=== PATIENT | female | born 1990 | race Caucasian/White ===

== ENCOUNTER 2018-04-09 15:46 | Emergency (ER) | payer OTHER, SELFPAY ==
[2018-04-09 15:46] VITALS: BP 128/78; PULSE 95; RESP 16; TEMP 36.6; O2SAT 100; BMI 25.8
--- NOTE | 2018-04-09 16:39 | ED.DCSUM_ITS ---
- ER Visit Summary Date of Service: 04/09/18 Chief Complaint: Abdominal pain History of Present Illness: The patient is a 27 F presenting with nausea, dysuria, abdominal pain. Patient went to urgent care because she believes she has a urinary tract infection. When the urgent care practitioner examined her she had left-sided abdominal pain. She was not aware of this abdominal pain until she was examined. She has had no vomiting. She denies fever. She has history of previous kidney infection. Denies possibility of . Physical Examination: Vitals are stable. Patient is afebrile. Alert no acute distress. HEENT exam is unremarkable. Neck is supple. Lungs are clear and equal bilaterally. Heart is regular rate and rhythm. Abdomen is soft left upper quadrant tenderness, no rebound or guarding Back: no CVA tenderness Extremities are unremarkable. Skin is warm and dry. No focal neurologic deficit. Remainder of exam is unremarkable. Emergency Department Course and Treatment: CBC, chemistries unremarkable. Liver lipase are normal. Urinalysis shows 50-100 white blood cells. D-dimer negative. HCG negative. She was given IV fluids, Phenergan with improvement. She is given a prescription for Bactrim. She is advised to follow-up with her primary care physician. She is advised to return to ED for worsening complaints. Disposition: Discharge home Impression: UTI, abdominal pain This note was generated with [employer] dictation software. It may contain incorrect words, spelling, and punctuation that were not noted in review of the chart prior to signing ED Disposition - Plan for ED Patient: Chief Complaint: Abd Pain Instructions: ED UTI Cystitis Female Prescriptions: Ondansetron [Zofran Odt] 4 mg PO Q8H PRN PRN #10 tablet PRN Reason: Nausea Smz/Tmp Ds [Bactrim Ds] 1 tablet PO BID #14 tablet Referrals: Enrique Putnam MD [Primary Care Provider] -
[2018-04-09 16:49] LABS: Color, Urine Yellow (Yellow); Glucose, Dipstick Normal (Normal); Leukocyte Esterase-Dipstick 25 /ul (Negative); Nitrite-Dipstick Negative (Negative); Occult Blood-Urine 25 /ul (Negative); Protein-Dipstick 30 mg/dl (Negative); Specific Gravity, Urine 1.025 (1.002-1.030); Urine Bilirubin Dipstick Negative (Negative); Urine Clarity Clear (Clear); Urine Urobilinogen Normal (Normal)
[2018-04-09] MEDS: 0.9% Normal Saline 1,000 ML 1000 ML IV (16:49)
[2018-04-09] MEDS: proMETHazine 25 MG/ML Syringe 6.25 MG IV (16:49)
[2018-04-09 16:52] LABS: Internal QC Validated? YES +Cl - CLEAR BKGD; Ketone-Dipstick 150 mg/dl (Negative); Pregnancy, Urine Negative Negative
[2018-04-09 16:56] LABS: Bacteria 1+ /hpf (None Seen); Mucous, Urine 1+ /hpf (<or=2+); Red Blood Cells-Urine 0-5 SEEN /hpf (0-5); Squamous Epithelial Cells - UA 0-5 SEEN /hpf (5-10); White Blood Cells 50-100 SEEN /hpf (0-5)
[2018-04-09 17:06] LABS: Absolute Lymphocyte Count 1.33 X10^3/ul (0.83-4.51); Absolute Neutrophil Count 5.4 X10^3/uL (2.0-7.7); Basophil# 0.01 X10^3/uL; Basophil% 0.1 % (0-1); Eosinophil# 0.05 X10^3/uL; Eosinophils% 0.7 % (0-5); Hematocrit 34.3 % (37-47); Hemoglobin 11.5 g/dl (12.0-15.0); Lymphocyte # 1.33 X10^3/ul (4.0); Lymphocyte % 18.4 % (19-41); Mean Corp Hgb Conc 33.5 g/gl (32-36); Mean Corpuscular Hgb 30.2 pg (27.0-32.0); Mean Platelet Vol. 10.3 fl (6.2-12.0); Monocyte# 0.46 X10^3/uL; Monocyte% 6.4 % (0-10); Neutrophil # 5.37 X10^3/uL (2.7-7.7); Neutrophil % 74.3 % (47-70); POSITIVE COUNT NO; POSITIVE DIFFERENTIAL NO; POSITIVE MORPHOLOGY NO; Platelet Count 239 K/mm3 (150-450); RBC Distribution Width CV 13.3 % (11.6-14.6); Red Blood Count 3.81 M/mm3 (4.2-5.4); White Blood Count 7.2 K/mm3 (4.4-11.0)
[2018-04-09 17:17] LABS: ALB/GLOB Ratio 1.1 RATIO (0.9-2.4); AST(SGOT) 10 U/L (15-37); Alanine Aminotransfer ALT/SGPT 11 U/L (13-56); Albumin, Serum 3.6 g/dL (3.2-5.0); Alkaline Phosphatase 62 U/L (45-117); Anion Gap 7 (5-15); BUN 8 mg/dL (7-18); BUN/Creat Ratio 12.1 RATIO (10-20); Calcium,Total 8.4 mg/dL (8.5-10.1); Chloride 107 mmol/L (98-107); Creatinine, Serum 0.66 mg/dL (0.55-1.02); EST Glomerular Filtration Rate 115 mL/min (>60); Est Glom Filt Rate - Afr Amer 139 mL/min (>60); Estimated Creatinine Clearance 107.79 ml/min; Globulin 3.4 g/dL (2.2-4.2); Glucose 79 mg/dL (74-106); Lipase 86 U/L (73-393); Potassium 3.7 mmol/L (3.5-5.1); Sodium Level 141 mmol/L (136-145)
[2018-04-09 17:31] LABS: D-Dimer Quantitative (DVT/PE) < 0.27 FEU/ug/m (0.27-0.49)
--- NOTE | 2018-04-09 17:58 | ED.DEP ---
ED Disposition - Plan for ED Patient: Chief Complaint: Abd Pain Instructions: ED UTI Cystitis Female Prescriptions: Ondansetron [Zofran Odt] 4 mg PO Q8H PRN PRN #10 tablet PRN Reason: Nausea Smz/Tmp Ds [Bactrim Ds] 1 tablet PO BID #14 tablet Referrals: Enrique Putnam MD [Primary Care Provider] -
[2018-04-09] MEDS: Smz/Tmp Ds Tablet 1 TABLET PO (18:14)
[2018-04-09 18:17] VITALS: BP 103/53; PULSE 58; RESP 16; O2SAT 98
== END 2018-04-09 18:18 | disposition home or self-care (01) ==
LOC: ED 16:56
PROVIDERS: Emergency Provider Emergency Medicine; Family Provider Family Medicine; PCP Family Medicine
DX: N39.0 Urinary tract infection, site not specified (principal); R10.9 Unspecified abdominal pain; Z87.440 Personal history of urinary (tract) infections
CPT/HCPCS: 80053; 81001; 81025; 83690; 85025; 85379; 96361; 96374; 99284; J7030; A4216

== ENCOUNTER → 2018-05-29 09:25 | Outpatient (CLI) | payer OTHER, SELFPAY ==
[2018-05-29 14:44] LABS: Chlamydia Trachomatis by PCR Negative (Negative); Neisserai gonorrhoeae by PCR Negative (Negative); Probe Check PASS; Sample Adequacy Control PASS; Specimen Processing Control PASS
== END ==
PROVIDERS: Visit Provider Obstetrics & Gynecology
DX: Z11.3 Encounter for screening for infections with a predominantly sexual mode of transmission (principal)
CPT/HCPCS: 87491; 87591

== ENCOUNTER 2024-03-28 09:11 | Inpatient (IN) | payer OTHER, SELFPAY ==
--- NOTE | 2024-03-22 14:49 | HP.PCM_ITS ---
History and Physical Date of Admission: 03/28/24 HPI: The patient is a 33 year old female presenting for pre-operative visit. She is scheduled for , for 39 weeks and history of previous on 03/28/24. Procedure discussed along with risks, benefits and complications. Other alternatives discussed for management. Consent form signed? Yes. PAST MEDICAL HISTORY PAST MEDICAL HISTORY No date: ADHD (attention deficit hyperactivity disorder) No date: Anemia No date: Depression Comment: Depression /anxiety No date: Diabetes, gestational No date: depression PAST SURGICAL HISTORY PAST SURGICAL HISTORY 08/12/2022: SECTION HX Comment: Primary c/s No date: PAST SURGICAL HISTORY OF Comment: extraction of wisdom teeth 2013 CURRENT MEDICATIONS Current Outpatient Medications Medication Sig Dispense Refill ? blood sugar diagnostic (BLOOD GLUCOSE TEST) test strip Use with blood glucose test four times a day. Insulin Dep? No 100 Strip 3 ? VIT 5-ZMUP-ZUXME-DHA ORAL Take by mouth once daily. Gummy No current facility-administered medications for this visit. ALLERGIES: Amoxicillin and Penicillins PERSONAL HISTORY: SOCIAL HISTORY Social History Tobacco Use ? Smoking status: Former Current packs/day: 0.00 Types: Cigarettes Start date: 2010 Quit date: 2014 Years since quittin.6 ? Smokeless tobacco: Never Vaping Use ? Vaping status: Never Used Substance Use Topics ? Alcohol use: Not Currently ? Drug use: Never FAMILY HISTORY: FAMILY HISTORY FAMILY HISTORY Problem Relation Age of Onset ? No Known Problems Mother ? Heart disease Father ? Diabetes Father ? Crohn's Disease Brother ? other (anemia) Brother ? Colon Cancer Maternal Grandmother ? No Known Problems Maternal Grandfather ? Breast Cancer Paternal Grandmother ? Heart disease Paternal Grandfather REVIEW OF SYMPTOMS: GENERAL: denies fevers or chills ENDOCRINOLOGY: has not been on steroids Cardiology : denies palpitations or chest pain Respiratory: denies SOB or cough Hematology: denies history of prolonged bleeding or easy bruising or VTE Allergy: Denies history of personal or family history of allergy to anesthesia PHYSICAL EXAMINATION: VITALS: Blood pressure 118/72, pulse 112, weight 100.2 kg (221 lb), last menst rual period 06/29/2023. GENERAL: The patient is well nourished, well hydrated in no acute distress. , The patient is oriented to time, place, and person. NECK: Supple. No lynphadenopathy, normal thyroid, no thyromegaly. LUNGS: Clear to auscultation bilaterally. no wheezes, rhonchi or rales HEART: Regular rate and rhythm, Normal heart sounds, and No murmurs or gallops Abdomen: Soft, nontender, nondistended, gravid, large for gestational age Extremities 1+ edema, symmetrical IMPRESSION: Estimated Date of Delivery: 04/04/24 -0-0-1 with history of previous PLAN: The risks/benefits/alternatives and personal involved for the planned C- section were reviewed with the patient. Her questions were answered to her satisfaction and she desires to proceed. Consent was signed. I reviewed with her postop instructions and expectations. I have reviewed and updated past medical and surgical history, medications and allergies Assessment & Plan Assessment/Plan (1) 39 weeks gestation of : (2) High risk multigravida in third trimester: (3) Gestational diabetes mellitus in childbirth, diet controlled: (4) Maternal morbid obesity in third trimester, antepartum: (5) BMI 39.0-39.9,adult: (6) Polyhydramnios in third trimester:
[2024-03-28] VITALS (16 sets, daily range): BP systolic 82–124; BP diastolic 49–69; PULSE 55–86; RESP 14–18; TEMP 36.1–36.5; O2SAT 96–100; BMI 39.2
[2024-03-28] MEDS: Lactated Ringers 1,000 ML 999 ML IV (09:55)
[2024-03-28] MEDS: Acetaminophen 500 MG Tablet 1000 MG PO ×2 (09:56→17:56)
[2024-03-28 10:12] LABS: Absolute Lymphocyte Count 1.55 X10^3/uL (0.83-4.51); Absolute Neutrophil Count 7.1 X10^3/uL (2.0-7.7); Basophil# 0.02 X10^3/uL; Basophil% 0.2 % (0-1); Eosinophil# 0.11 X10^3/uL; Eosinophils% 1.1 % (0-5); Hematocrit 31.2 % (37-47); Hemoglobin 9.9 g/dL (12.0-15.0); Lymphocyte # 1.55 X10^3/ul (0.83-4.51); Mean Corp Hgb Conc 31.7 g/dL (32-36); Mean Corpuscular Hgb 25.4 pg (27.0-32.0); Mean Corpuscular Volume 80.2 fL (81-99); Mean Platelet Vol. 10.2 fl (6.2-12.0); Monocyte% 7.2 % (0-10); NRBC Flagged by Analyzer 0 % (0-5); Neutrophil # 7.13 X10^3/uL (2.7-7.7); Neutrophil % 73.6 % (47-70); Platelet Count 210 K/mm3 (150-450); RBC Distribution Width CV 16.3 % (11.6-14.6); RBC Distribution Width SD 47.5 fl (35.1-43.9); Red Blood Count 3.89 M/mm3 (4.2-5.4); White Blood Count 9.7 K/mm3 (4.4-11.0)
[2024-03-28] MEDS: Lactated Ringers 1,000 ML 150 ML IV (10:43)
[2024-03-28 10:56] LABS: Bedside Glucose 76 mg/dL (74-106)
[2024-03-28 10:58] LABS: Syphilis Antibodies Non-reactive
[2024-03-28] MEDS: Sodium Citrate/Citric Acid 30 ML UDC PO (11:48)
[2024-03-28] MEDS: Gentamicin IV 350 MG in Dextrose 5%-Water (50mL Bag) 50 ML 100 MG IVPB (11:58)
[2024-03-28] MEDS: Clindamycin 900 MG/50 ML BAG 75 MG IV (12:18)
--- NOTE | 2024-03-28 12:46 | OP.PCM_ITS ---
Assessment & Plan (1) Polyhydramnios in third trimester: (2) BMI 39.0-39.9,adult: (3) Maternal morbid obesity in third trimester, antepartum: (4) Gestational diabetes mellitus in childbirth, diet controlled: (5) High risk multigravida in third trimester: (6) 39 weeks gestation of : Maternal Data Information Final DUNG: 04/04/24 Gestational age: 39 0/7 Details Operative Information Date of Procedure: 03/28/24 Pre-Operative Diagnosis: previous c/s Post-Operative Diagnosis: same Indications for : Repeat Elective Classification: Scheduled Procedure Type: low transverse revenue audit clerk #1: Francheska Theodore Type of Anesthesia: Spinal Anesthesiologist: Carlos Ford Antibiotic Given: Clindamycin 600mg IV x1 and Gentamicin 1.5mg/kg IV x1 Drain: Gamez to straight drain Estimated Blood Loss: 800 Fluids Replaced: 1000 Procedure Start Time: 12:20 Procedure Stop Time: 12:43 Time of Delivery: 12:22 Findings Description of Procedure: The patient was taken to the operating room. She was prepped and draped in the dorsal supine position with a leftward tilt. A Pfannenstiel skin incision was made approximately 2 cm above the symphysis pubis and carried through to underlying layer fascia with the scalpel. The fascia was incised incised in the midline and extended laterally with the Mclaughlin scissors. The fascia was dissected off the rectus muscles with blunt and sharp dissection. The rectus muscles were in the midline and the peritoneum was entered bluntly. The peritoneal incision was stretched and the bladder blade was placed. The uterine incision was made in a low transverse fashion with the scalpel and extended superiorly and inferiorly with blunt dissection. The amniotic membranes were ruptured bluntly and clear amniotic fluid returned. The infant's head was brought to the incision in the flexed position and delivered without difficulty. The remainder of the was delivered with gentle traction and fundal pressure in the standard fashion. The mouth and nares were bulb suctioned. The cord was clamped and cut as the infant was stimulated. Cord clamping was delayed. The infant was handed off to the waiting nursing staff. The placenta was delivered with fundal massage and gentle traction in the standard fashion. The uterus was exteriorized and cleared of all clots and debris. The cervix was dilated with a ring forcep. The uterine incision was closed with #1 Vicryl in a running locked fashion. A second layer of the same suture was used in an imbricating fashion. The incision was examined and was found to be hemostatic. The uterus was placed back into the peritoneal cavity and hemostasis was again confirmed. The rectus muscles were examined and any bleeding was Bovie ca uterized. The parietal peritoneum and rectus muscles were closed en bloc with an 0 Vicryl running suture. The surgical teams outer gloves were then changed. The rectus fascia was examined and any bleeding was Bovie cauterized and the rectus fascia was closed with #1 PDS suture in a running standard fashion. The subcutaneous tissue was examining and any bleeding was Bovie cauterized. The subcutaneous tissue was reapproximated with 3-0 Vicryl suture. The skin was closed in a subcuticular fashion. I performed the entire procedure with assistance. All sponge, lap, and needle counts were correct. The patient was taken to her room for recovery in a stable condition. Presentation: Positive for Vertex Amniotic Membrane Rupture Type: Artificial Amniotic Fluid Description: Clear Placental Delivery Description: Expressed Placenta Disposition: [facility] Cord Vessel Description: 3 Vessels Cord Entanglement: Around neck x 1, loose Nuchal Cord Compression: Without compression Infant A Gender: Male (8lb) (1 minute): 8 (5 minute): 9 Delayed Cord Clamping: Yes Complications Complications: none Admit VTE Documentation VTE Present on Admission: No VTE Mechan Device Prophylaxis: SCD's VTE Pharm Prophylaxis Ordered: Yes
[2024-03-28] MEDS: Oxytocin 15 Units/NS 250ml 15 UNITS/250 ML IV.SOLN 83 UNITS IV (13:34)
[2024-03-28] MEDS: LACTATED RINGERS 500 ML 999 ML IV (13:34)
[2024-03-28] MEDS: Ketorolac 30 MG/ML Syringe IV ×2 (13:40→20:24)
[2024-03-28 15:13] LABS: Bedside Glucose 81 mg/dL (74-106)
[2024-03-28] MEDS: Lactated Ringers 1,000 ML 100 ML IV (16:12)
[2024-03-28] MEDS: 0.9% Saline Lock 10 ML Syringe IV (20:25)
[2024-03-29] MEDS: Acetaminophen 500 MG Tablet 1000 MG PO ×4 (00:23→17:46)
[2024-03-29] MEDS: Lactated Ringers 1,000 ML 100 ML IV (00:24)
[2024-03-29] MEDS: Enoxaparin 40 MG/0.4 ML Syringe SC (00:24)
[2024-03-29 00:30] VITALS: BP 116/66; PULSE 72; RESP 16; TEMP 36.3; O2SAT 97
[2024-03-29] MEDS: Ketorolac 30 MG/ML Syringe IV ×2 (02:10→06:55)
[2024-03-29 04:15] VITALS: BP 117/58; PULSE 71; RESP 16; TEMP 36.2; O2SAT 98
[2024-03-29 04:35] LABS: Hematocrit 27.8 % (37-47); Hemoglobin 8.6 g/dL (12.0-15.0); Mean Corp Hgb Conc 30.9 g/dL (32-36); Mean Corpuscular Hgb 24.9 pg (27.0-32.0); Mean Corpuscular Volume 80.3 fL (81-99); Mean Platelet Vol. 10.5 fl (6.2-12.0); Platelet Count 178 K/mm3 (150-450); RBC Distribution Width CV 16.6 % (11.6-14.6); RBC Distribution Width SD 47.9 fl (35.1-43.9); Red Blood Count 3.46 M/mm3 (4.2-5.4); White Blood Count 12.4 K/mm3 (4.4-11.0)
[2024-03-29 06:37] LABS: Bedside Glucose 81 mg/dL (74-106)
[2024-03-29 08:09] VITALS: BP 122/66; PULSE 68; RESP 15; TEMP 36.1
--- NOTE | 2024-03-29 08:43 | PCM.PN.CNM ---
Subjective Subjective Patient seen at bedside. Denies headache, vision changes, SOB or CP. Ambulating and voiding without difficulty. Passing flatus. infant. Objective Data Objective Data Vital Signs: Vital Signs Temp Pulse Resp BP Pulse Ox O2 Del Method 97.0 F L 68 15 122/66 H 98 Room Air 03/29/24 08:09 03/29/24 08:09 03/29/24 08:09 03/29/24 08:09 03/29/24 04:15 03/29/24 08:09 Oxygen Delivery Method Room Air Weight: 221 lb 12.56 oz Body Mass Index (BMI) 39.2 Intake & Output: Intake and Output for Last 24 Hours 03/27/24 03/28/24 03/29/24 23:59 23:59 23:59 Intake Total 2413.75 / 2413.75 820 / 820 Output Total 750 / 750 600 / 600 Balance 1663.75 / 1663.75 220 / 220 Lab / Micro Data Attestation: I reviewed the patient's lab results. 03/29/24 04:19 Labs: Laboratory Results - last 24 hr 03/28/24 09:50: WBC 9.7, RBC 3.89 L, Hgb 9.9 L, Hct 31.2 L, MCV 80.2 L, MCH 25.4 L, MCHC 31.7 L, RDW Std Deviation 47.5 H, RDW Coeff of Cadence 16.3 H, Plt Count 210, MPV 10.2, Immature Gran % (Auto) 1.900 H, Neut % (Auto) 73.6 H, Lymph % (Auto) 16.0 L, [place] % (Auto) 7.2, Eos % (Auto) 1.1, Baso % (Auto) 0.2, Absolute Neuts (auto) 7.1, Absolute Lymphs (auto) 1.55, Nucleated RBC % 0, Syphilis Total Ab Non-reactive, Blood Type O POSITIVE, Antibody Screen NEGATIVE 03/28/24 10:28: POC Glucose 76 03/28/24 14:54: POC Glucose 81 03/29/24 04:19: WBC 12.4 H, RBC 3.46 L, Hgb 8.6 L, Hct 27.8 L, MCV 80.3 L, MCH 24.9 L, MCHC 30.9 L, RDW Std Deviation 47.9 H, RDW Coeff of Cadence 16.6 H, Plt Count 178, MPV 10.5 03/29/24 06:14: POC Glucose 81 ROS Eyes Eyes: Denies blurry vision, spots in vision or tunnel vision ENT HEENT: Denies dizziness or headache(s) Cardiovascular Cardiovascular: Reports systems reviewed and no addt'l complaints, except as documented, dizziness and dyspnea Respiratory/Chest Respiratory/Chest: Reports systems reviewed and no addt'l complaints, except as documented Gastrointestinal Gastrointestinal: Reports systems reviewed and no addt'l complaints, except as documented Genitourinary Genitourinary: Reports systems reviewed and no addt'l complaints, except as documented Neurologic Neurologic: Denies abnormal speech, dizziness, headache(s), syncope or vertigo Psychiatric Psychiatric: Reports systems reviewed and no addt'l complaints, except as documented Physical Exam Const alert and no apparent distress General Appearance: cooperative Orientation / Consciousness: awake, oriented to person and oriented to place Exam Limitations: no limitations HEENT normocephalic Eyes General Eye: normal appearance of both eyes Neck full ROM Chest Chest: symmetrical chest wall rise Resp normal respiratory effort, normal air movement and clear to auscultation bilaterally Auscultation: clear to auscultation bilaterally Cardio regular rate and regular rhythm GI normal to inspection, nondistended, normoactive bowel sounds Uterus Palpation: uterus fundus firm Extremity full ROM and no calf tenderness Skin no rashes or lesions noted Neuro oriented x3 Psych mental status grossly normal and activity/motor behavior normal Assessment & Plan (1) Status post delivery: (2) Mother currently breast-feeding: PLAN: Plan POD 1 Repeat C/S HGB 8.6 down from 9.9 Start oral iron supplementation Increase ambulation today Pain control support
[2024-03-29 12:26] VITALS: BP 125/62; PULSE 79; RESP 16; TEMP 36.4
[2024-03-29] MEDS: FLU VACC 2024-25(6MOS UP)/PF 45 MCG/0.5 ML SYRINGE IM (12:29)
[2024-03-29] MEDS: Senna/Docusate Sodium 1 Tablet PO (12:30)
[2024-03-29] MEDS: Ferrous Sulfate 325 MG Tablet PO ×2 (12:32→17:47)
--- NOTE | 2024-03-29 13:44 | CASEMGMT ---
Social Work Assessment Labor and Delivery Unit Patient Address:[address] [place] [id number] Phone number:[phone] Date of Referral: 03/28/24 Time of Referral:? 1428 Referred By: Dr. Soto Date of Intervention: ??03/29/24 Time of Intervention:? 1100 Reason for Referral:? anxiety, depression Sw completed psychosocial assessment and acknowledges social work consult due to maternal mental health history. Sw presented to bedside and introduced self to mother of baby (ERMA- Iram). ERMA was alone in room for majority of assessment, until father of baby (ESTEFANIA Prajapati) presented later with older son. Sw completed psychosocial assessment and asked MOB to complete [place] Depression Scale. History obtained from: medical records, MOB Household composition: Currently residing in the family home is MOB, WILLIAM and older son (Skinny- 19 mos old). REMA reports that she and FOB recently moved back to [place] from [place] after discovering that they were in December. MOB states that they are in the process of purchasing the home that they are in from a family friend. Patient's parent/guardian status:? ?ERMA reports that she and WILLIAM met when they were in Kindergarten, and were in school together until they were in 8th grade when FOB transferred to a different school. After both parents graduated they met again and started dating. They have been together for 6 years. - MOB identifies any concerns of domestic violence or intimate partner violence. Medical History: ?ERMA is 33 year old female who is 2, para 1- now 2 following labor and delivery of . After her first son was born, ERMA had ParaGuard and did not know that she was until she was about 5 months . ERMA reports that the was a total surprise and is something that she is still processing. ERMA initiated care in [place] and then transferred OBGYN care to [facility] when she moved to [place] in February. ERMA presented to hospital on 03/28/24 for a scheduled repeat . Baby boy, named Nakita Garland, was born weighing 8lb. MOB states that breast feeding is going well and baby will be followed by Dr. Sims for pediatrics. Educational Status:? Both parents graduated from high school and obtained some college education- no degrees. MOB denies issues with reading, learning or comprehension. Financial Status: Both parents are gainfully employed. WILLIAM works from home as a draftsman for a [employer]. ERMA was employed by [employer] in [place], and is technically on a maternity leave. MOB states that when her maternity leave is over she will return to [employer] but is considering finding something else. Infant Supplies:?? MOB reports that they have all necessary baby items, including: car seat, safe sleep space, clothes, diapers and wipes. Childcare/Caregiver(s):? MOB states that she will be the primary caregiver to baby, along with WILLIAM as he works from home and can help out when she needs it. MOB states that when both parents have returned to work paternal grandma will watch kids , Tue and . Maternal grandma will watch baby on Mondays. And Fridays are up in the air at this time. Transportation:??Both parents have their drivers license and reliable means of transportation. No barriers at this time. Programs/Agencies Involved: ?MOB states that prior to moving to [place] she was looking into getting connected to a mental health provider, but stopped because she discovered she was and did not want to start medication during . Parents are over income for community agencies that provide financial assistance. ?? Children Services/Legal Issues:??? No prior involvement with Children Services, no issues or concerns warranting referral to be made at this time. Behavioral Health Issues: ??Mental Health History: ERMA reports that WILLIAM does have anxiety or depression but has never officially been diagnosed. MOB states that she has history of anxiety and depression and did experience depression after her first son was born. MOB states that while she was on maternity leave with her first son she felt isolated and alone during her 16 week maternity leave. MOB states that she felt anxious and did not want to put her baby down. MOB reports that it was not until July of this year when she realized that she had struggled with depression/ anxiety. ?ERMA completed [place] Depression scale and her score was an 18. MOB tearful and crying throughout completion of assessment. MOB allowed herself to be open and talk about her mental health history freely. MOB states that she was not ready to have another baby, and is grieving the time that she thought she would have with just one baby. MOB states that she feels as though she robbed her first son of time of being the only child. MOB states that she has never had thoughts of hurting her baby, however prior to delivering this baby she did have thoughts about what if I fell down the steps, what would happen. ERMA denies ever having thoughts of hurting herself in the past, and does not have plan or intent to do so now. MOB states that she is able to recognize that those kinds of thoughts are intrusive thoughts, and she would never act on them. ?? Substance Use History:?MOB denies substance use prior to and during . ? Family History:?MOB denies family history of substance use and significant mental health history. ? Drug Screens: No drug screens observed in chart review. ?? Family/Social Stressors:? ERMA reports that the unplanned was a significant stressor for her and FOB. MOB states that when she found out she was at 5 months, she and FOB decided that they would need to move back home to [place] so that they would have more help and support, especially since the baby will be born when their first son is less than 2 years old. MOB states that packing a house while 8-9 months , and then unpacking boxes that were not organized to begin with has been extremely stressful and overwhelming. MOB also states that the home they are living in they are in the process of buying, and the process had to start all over when they moved to [place] in February. MOB states that they are going in the right direction now with the purchase, but it took a while to get where they are. ERMA also identifies that her in-laws are a significant stressor to her at this time. ERMA reports that her in-laws have different parenting styles, and they are not on the same page. MOB states that this is stressful because they will be providing childcare for them three days out of the week when both parents have returned to work. ERMA's mental health is also a significant concern. Support Systems: ERMA identifies that WILLIAM, her mom and her two friends are her biggest support. MOB states that if she is at home during this maternity leave and needs someone to come and just be with her, her best friend is able to do that. Depression/Shaken Baby/Safe Sleeping:? Yahir educated ERMA on signs and symptoms of baby blues and mood and anxiety disorders to be on the lookout for during this period. Yahir explained to ERMA that she is already scoring an 18 on the [place] which is indicative of anxiety and depression. Sw encouraged MOB to consider getting connected to a mental health professional to address her underlying diagnoses and to have support during this period. MOB states that she is open to that recommendation and asked for information regarding resources. MOB states that she also plans on addressing this concern with her OBGYN to discuss a low dose medication to help her get through this time. Sw educated MOB on shaken baby prevention and ABCs of safe sleep. MOB expressed understanding. Sw encouraged MOB to have a conversation with FOB about what he can do to help support her during this time. MOB stated that she has broached this topic with him several times, but will do so again. ASSESSMENT:? MOB and baby admitted following labor and delivery. MOB observed to hold baby and look at home from time to time in loving manner. MOB seemed slightly disengaged from baby, and so this topic was discussed. MOB admits that she is still processing the fact that she has a baby and is living in [place] when this was not part of her plan. MOB reports that she does love baby and knows that she will adapt to these abrupt changes, but for now she is still processing. MOB states that she has supports in place and has all necessary baby items. MOB with mental health history and elevated [place] score. MOB open and receptive to engaging with ongoing mental health services and support. PLAN:? MOB and baby to be discharged when medically ready. MOB/ parents were provided with literature regarding: Help Me Grow, safe sleep, shaken baby prevention, [facility] resource list and education regarding mood and anxiety disorders to be aware of. ?No other services requested or indicated. Sterling Stauffer, PHOTOGRAPHER MODEL, [employer]
[2024-03-29] MEDS: Ibuprofen 600 MG Tablet PO ×2 (14:50→20:11)
[2024-03-29 16:07] VITALS: BP 117/68; PULSE 74; RESP 15; TEMP 36.5
[2024-03-29 20:13] VITALS: BP 121/71; PULSE 71; RESP 16; TEMP 36.2; O2SAT 98
[2024-03-29] MEDS: oxyCODONE 5 MG Tablet PO (22:14)
[2024-03-30] MEDS: Acetaminophen 500 MG Tablet 1000 MG PO ×3 (00:06→12:56)
[2024-03-30] MEDS: Enoxaparin 40 MG/0.4 ML Syringe SC (01:47)
[2024-03-30] MEDS: Ibuprofen 600 MG Tablet PO ×3 (01:47→12:57)
[2024-03-30 02:00] VITALS: BP 114/67; PULSE 63; RESP 16; TEMP 36.4; O2SAT 98
[2024-03-30] MEDS: Senna/Docusate Sodium 1 Tablet PO (08:08)
[2024-03-30 08:25] VITALS: BP 124/70; PULSE 74; RESP 18; TEMP 36.4; O2SAT 100
--- NOTE | 2024-03-30 10:14 | PCM.DC.SUM ---
Providers Date of Admission: 03/28/24 Primary Care Physician: No Primary Care Phys Reason For Visit: REPEAT C SECTION Diagnosis Discharge Diagnosis (1) Status post delivery: Status: Acute Code(s): Z98.891 - History of uterine scar from previous surgery (2) Post-operative pain: Status: Acute Code(s): G89.18 - Other acute postprocedural pain Plan POD 2 Repeat C/S Pain control support Desires discharge home today Reviewed PPD and PP anxiety - resources provided- no hx of medications Patient to follow up this week in office for incision check Medications at Discharge Home Medications ondansetron 4 mg disintegrating tablet 4 mg PO Q8H PRN PRN Nausea #10 tabs 04/09/18 acetaminophen 500 mg tablet 1,000 mg (2 x 500 mg) PO Q6 #0 tabs 03/30/24 ferrous sulfate 325 mg (65 mg iron) tablet (FeroSul) 325 mg PO 1200,1700 #0 tabs 03/30/24 ibuprofen 600 mg tablet 600 mg PO Q6H #0 tabs 03/30/24 oxycodone 5 mg tablet 5 - 10 mg (1 - 2 x 5 mg) PO Q4H PRN PRN Pain Score 4-10 5 days #14 tabs 03/30/24 sennosides 8.6 mg-docusate sodium 50 mg tablet (Stimulant Laxative Plus) 1 - 2 tab PO DAILY #0 tabs 03/30/24 Hospital Course Operations section Procedures None Summary of Care Provided Minutes Spent on Discharge: 15 Hospital Course: Patient had section. Hospital course was uneventful. Physical Exam Narrative Dressing is dry and intact Const alert and no apparent distress General Appearance: cooperative and comfortable Exam Limitations: no limitations HEENT normocephalic Eyes General Eye: normal appearance of both eyes Neck full ROM General: normal visual inspection Chest Chest: symmetrical chest wall rise Resp normal respiratory effort and normal air movement Effort and Inspection: symmetric chest movement Auscultation: clear to auscultation bilaterally Cardio regular rate and regular rhythm GI normal to inspection, nondistended, normoactive bowel sounds Back/Spine normal ROM Extremity full ROM and no calf tenderness General Extremity: normal exam except as noted Skin no rashes or lesions noted Wound Narrative: Dressing is dry and intact. Neuro CN's II-XII intact bilaterally Psych mental status grossly normal Weight / BMI Weight Weight: 221 lb 12.56 oz Body Mass Index (BMI) 39.2 ABG / Lab / Microbiology Data 03/29/24 04:19 D/C Instructions Discharge Diet: No restrictions Discharge Activity: May Drive (2 weeks) and May Shower May resume sexual activity in: 6-8 weeks Weight Bearing Status: Weight bearing as tolerated Lifting Restricted to (Lbs): 25 Call your doctor if your incision/area has: Continuous Slow Oozing, Sudden Increased Bleeding, Increased Pain/ Swelling, Increased Redness, Foul Smelling Discharge and Swelling at the incision site Call your doctor if you observe: Fever of 101 or Higher, Numbness or Tingling, Using more than 1 pad per hour, Shortness of breath, Dizziness, Swelling in the ankles, Chest pain, Calf discomfort and Uncontrolled pain Suture Line Care: Avoid Pulling/Pushing Remove Dressing in: 5 days (Remove yourself or call office and schedule appointment for dressing removal.) Please Follow Up With: [facility] When: 5 days for dressing removal or 2 weeks for post appointment. Meaningful Use Info Meaningful Use Meaningful Use Diagnoses (Choose all that apply): None applicable Ischemic Stroke Statin Dosing Therapy Reference: STATIN DOSE THERAPY REFERENCE: * Patients > 75 years receive moderate or high dose statin therapy. * Patients 75 years or YOUNGER should receive HIGH intensity statin dose unless contraindicated. You will be required to document reason for non-treatment if statin daily dose does not meet guidelines. HIGH DOSE STATIN THERAPY DAILY Atorvastatin > than or = to 40 mg Rosuvastatin > than or = to 20 mg Amlodipine + Atorvastatin > than or = to 2.5/40 mg Ezetimibe + Simvastatin 10/80 mg Simvastatin 80mg Discharge Plan Admission Admit Date/Time: 03/28/24 09:11 Primary Reason for Your Visit: Repeat Section Attending Provider: Latrice Soto Primary Care Provider: Care Physician,Kmimy Primary Discharge Orders/Prescriptions Prescriptions: New sennosides-docusate sodium [Stimulant Laxative Plus] 8.6-50 mg Tablet 1 - 2 tab PO DAILY Qty: 0 0RF acetaminophen 500 mg Tablet 1,000 mg PO Q6 Qty: 0 0RF ferrous sulfate [FeroSul] 325 mg (65 mg iron) Tablet 325 mg PO 1200,1700 Qty: 0 0RF ibuprofen 600 mg Tablet 600 mg PO Q6H Qty: 0 0RF oxycodone 5 mg Tablet 5 - 10 mg PO Q4H PRN PRN (Reason: Pain Score 4-10) 5 Days Qty: 14 0RF Discontinued sulfamethoxazole-trimethoprim 1 TABLET tablet 1 tab PO BID Qty: 14 0RF No Action ondansetron 4 MG tablet 4 mg PO Q8H PRN PRN (Reason: Nausea) Qty: 10 0RF Referrals / Follow Up: Debbie Garcia CNM [Med Staff - [facility]] - Care Physician,No Primary [Primary Care Provider] - Disposition Disposition (needs filled in before D/C Order can be placed): Home, Self Care
[2024-03-30] MEDS: Ferrous Sulfate 325 MG Tablet PO (12:57)
== END 2024-03-30 14:45 | disposition home or self-care (01) | DRG 788 ==
PROVIDERS: Admitting Provider Obstetrics & Gynecology; Referring Provider Obstetrics & Gynecology; Visit Provider Obstetrics & Gynecology
PROC: 10D00Z1 Extraction of Products of Conception, Low, Open Approach (ICD-10-PCS; CPT 59514; principal; 2024-03-28 11:45)
DX: O40.3XX0 Polyhydramnios, third trimester, not applicable or unspecified (principal); O24.420 Gestational diabetes mellitus in childbirth, diet controlled; E66.01 Morbid (severe) obesity due to excess calories; O34.219 Maternal care for unspecified type scar from previous cesarean delivery; O99.214 Obesity complicating childbirth; Z37.0 Single live birth; O69.2XX0 Labor and delivery complicated by other cord entanglement, with compression, not applicable or unspecified; Z87.891 Personal history of nicotine dependence; Z3A.39 39 weeks gestation of pregnancy
CPT/HCPCS: 59025; 59050; 82962; 85025; 85027; 86780; 86850; 86900; 86901; 90656; 99221; J7120; A4216; G0378; J2405